=== PATIENT | female | born 1990 | race Two or more races ===

== ENCOUNTER 2019-02-03 21:44 | Emergency (ER) | payer MEDICAID ==
[~2019-02-03] VITALS: Ht 162.6 cm; Wt 54.0 kg
[2019-02-03 23:00] VITALS: BP 107/71
== END 2019-02-04 00:17 | disposition home or self-care (01) ==
LOC: ER 21:44
DX: T40.7X1A Poisoning by cannabis (derivatives), accidental (unintentional), initial encounter (principal); Y92.89 Other specified places as the place of occurrence of the external cause
CPT/HCPCS: 81025; 99283